=== PATIENT | female | born 1990 | race Hispanic/Latino ===

== ENCOUNTER 2017-03-07 15:30 | Emergency (ER) | payer BC, SELFPAY | END 2017-03-07 16:33 | disposition home or self-care (01) | LOC: SCSER 15:30 | DX: O20.0 Threatened abortion (principal); Z3A.01 Less than 8 weeks gestation of pregnancy | CPT/HCPCS: 36415; 84702 ==

== ENCOUNTER 2017-06-05 12:43 | Outpatient (CLI) | payer OTHER ==
--- NOTE | 2017-06-05 14:20 | ULT ---
OBSTETRIC SONOGRAM: HISTORY: Second trimester . Evaluate size and dates. FINDINGS: Multiple transabdominal sonographic views of the gravid uterus show a single intrauterine gestation, in a cephalic presentation. The grade 0 placenta is posterior. The spine and kidneys are inta ct, as visualized. The four chamber heart shows motion at 155 beats per minute. Amniotic fluid is w ithin normal limits. No gross intracranial abnormalities are apparent. Measurements are as follows: BIPARIETAL DIAMETER: 19 weeks and 6 days HEAD CIRCUMFERENCE: 20 weeks and 2 days ABDOMINAL CIRCUMFERENCE: 19 weeks and 6 days FEMUR LENGTH: 20 weeks and 5 days ESTIMATED DATE OF DELIVERY (BASED ON TODAY'S SONOGRAM): 10/22/2017 HADLOCK PERCENTILE: 65% IMPRESSION: Single viable intrauterine gestation with estimated gestational age, based on today's sonogram, 20 we eks and 1 day. POS: [facility]
== END 2017-06-05 12:44 | disposition home or self-care (01) ==
LOC: ULT 12:43
PROVIDERS: ATTEND Family Medicine
DX: Z34.92 Encounter for supervision of normal pregnancy, unspecified, second trimester (principal); Z3A.18 18 weeks gestation of pregnancy
CPT/HCPCS: 76805

== ENCOUNTER 2017-09-11 09:55 | Outpatient (CLI) | payer OTHER ==
--- NOTE | 2017-09-11 11:49 | ULT ---
ULTRASOUND RETROPERITONEUM COMPLETE: (RENAL) DATE: 09/11/17. HISTORY: A 27-year-old female in third trimester of experiencing right flank pain. FINDINGS: The right kidney measures approximately 12 x 6.5 x 6 cm. The left kidney measures approximately 11 x 5.5 x 5 cm. There is no hydronephrosis bilaterally. No moderate size or large solid or cystic renal lesion. The urinary bladder was not evaluated because it is obscured by the third-trimester gravid uterus. IMPRESSION: No hydronephrosis. CHARISSA Juarez POS: [facility]
--- NOTE | 2017-09-11 12:20 | ULT ---
OB ULTRASOUND: History: Evaluate for size and dates. Comparison: 06-05-17 Technique: Sagittal and transverse imaging of the gravid uterus was performed. FINDINGS: There is a single intrauterine gestation with cephalic presentation. Posterior placenta. Presence of absence of previa is difficult to assess on this examination due to shadowing from lie. Lower u terine segment cannot be assessed. There are heart tones at the rate of 124 beats/minute. Amniotic fluid index is 11.9 cm. biometry: BPD 8.38 cm 33 weeks 5 days HC 31.19 cm 34 weeks 6 days AC 29.24 cm 33 weeks 2 days FL 6.67 cm 34 weeks 2 days Average age by sonography is 34 weeks 0 days with an estimated delivery date of 10-23-17. weight is 2271 grams +/- 336 grams. IMPRESSION: 1. Single intrauterine gestation with heart tones. lie is cephalic. 2. Average age by ultrasound is 34 weeks 0 days, with estimated delivery date of 10-23-17. There is alba ropriate interval growth. Previously the estimated delivery date was 10-22-17. 3. Amniotic fluid index is 11.9 cm. POS: [facility]
== END 2017-09-11 09:56 | disposition home or self-care (01) ==
LOC: SCSULT 09:55
PROVIDERS: ATTEND Family Medicine
DX: Z34.93 Encounter for supervision of normal pregnancy, unspecified, third trimester (principal); Z3A.33 33 weeks gestation of pregnancy
CPT/HCPCS: 76770; 76805

== ENCOUNTER 2017-09-21 20:55 | Day surgery (SDC) | payer OTHER ==
[2017-09-21 21:32] VITALS: BP 108/64; TEMP 98.3
--- NOTE | 2017-09-22 07:46 | PRG ---
DATE OF SERVICE: 09/21/2017 PRESENTING COMPLAINT: Contractions, 35 weeks gestation. HISTORY OF PRESENT ILLNESS: Ms. 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 She denies ruptur e of membranes, vaginal bleeding. Reports an active fetus. OB AND MOLD WASHER HISTORY: Antepartum record not available on the unit, prior at term x1. Blood type O positive. PAST MEDICAL HISTORY: Denies. PAST SURGICAL HISTORY: Denies. ALLERGIES: Denies. MEDICATIONS: vitamins. SOCIAL HISTORY: Denies tobacco, alcohol, or IV drug use. FAMILY HISTORY: Noncontributory. REVIEW OF SYSTEMS: Noncontributory. PHYSICAL EXAMINATION: GENERAL: female, resting comfortably, texting on her cell phone. VITAL SIGNS: Temperature 97.8, respirations 18, pulse 79, blood pressure 108/64. HEENT: Within normal limits. LUNGS: Clear to auscultation bilaterally. HEART: Regular rate and rhythm. ABDOMEN: Soft and nontender with occasional indentable contractions. FHTs 140s. PELVIC: Vulva without lesions. Vagina without discharge. Cervix 1, long and high, cephalic by nurs e exam. EXTREMITIES: Without clubbing, cyanosis or edema. heart rate tracing was carried out for greater than 30 minutes revealed contractions approximat nannette q.8-10 minutes. Category 1 heart rate tracing was noted. IMPRESSION: Uterine irritability without evidence of labor at 35-36 weeks gestation. PLAN: Reassurance, p.o. hydration at home, keep scheduled followup with Dr. Campos.
== END 2017-09-21 22:35 | disposition home or self-care (01) ==
LOC: L&D/OP 20:55
PROVIDERS: ATTEND Family Medicine
DX: O47.03 False labor before 37 completed weeks of gestation, third trimester (principal); Z3A.35 35 weeks gestation of pregnancy; Z79.899 Other long term (current) drug therapy; Z91.09 Other allergy status, other than to drugs and biological substances
CPT/HCPCS: 99282

== ENCOUNTER 2017-09-25 21:38 | Day surgery (SDC) | payer OTHER ==
[2017-09-25 22:04] VITALS: BP 125/72; TEMP 98.7
--- NOTE | 2017-09-25 22:19 | PDOC.LDHP ---
Labor and Delivery H&P HPI: Patient of Dr Deandre Elias here at 35 weeks and 6 days with c/o contractions on/ off. Was seen earlier this week for same and was 1cm. No VB, no LOF, good FM. Review of Systems: complete ROS was performed and as per HPI. Current gestational age (weeks): 35 (6 days) Dating criteria: last menstrual period Grav: 3 Para: 1 (SAB1, no HX PTB) Current complications: none Abnormal US findings: No Current medications: pre-kendal vitamins Previous surgical history: none Allergies/Adverse Reactions: Allergies Allergy/AdvReac Type Severity Reaction Status Date / Time brooke Allergy Mild Rash Verified 09/25/17 22:04 Social history: none - Physical Exam Vital signs reviewed and normal: yes (125/72) General: NAD Heart: RRR Lungs: CTAB Abdomen: gravid Extremeties: no edema FHT: category 1 Electra contractions every: only irritability - Vaginal Exam cm dilated: 1 Effacement: 0% Station: -2 - Assessment Threatened labor at 35 weeks 6 days - Plan Plan: observation in L&D -: We will oberve in L&D. Monitors. I have ordered 1 liter LR for hydration. No evidence of PTL as cx unchanged from Thursday. Cat 1 NST. reassurance given.
[2017-09-25] MEDS ORDERED: Lactated Ringer's 1,000 ML IV SCH (22:30)
== END 2017-09-26 00:10 | disposition home or self-care (01) ==
LOC: L&D/OP 21:38
PROVIDERS: ATTEND Family Medicine
DX: O47.03 False labor before 37 completed weeks of gestation, third trimester (principal); Z79.899 Other long term (current) drug therapy; Z3A.35 35 weeks gestation of pregnancy

== ENCOUNTER 2017-10-13 14:43 | Inpatient (IN) | payer OTHER ==
[2017-10-13 15:21] VITALS: BMI 32.5
[2017-10-13] MEDS ORDERED: Lidocaine 1% (PF) 30 ML VIAL SC PRN (21:05)
[2017-10-13] MEDS ORDERED: Ondansetron HCl/PF 4 MG/2 ML Vial IVP PRN (21:05)
[2017-10-13] MEDS ORDERED: HYDROcodone/Acetaminophen 5/325 mg Tablet PO PRN (21:05)
[2017-10-13] MEDS ORDERED: Acetaminophen 500 MG TAB PO PRN (21:05)
[2017-10-13] MEDS ORDERED: Promethazine HCl 25 MG/ML VIAL IM PRN (21:05)
[2017-10-13] MEDS ORDERED: Ibuprofen 800 MG TAB PO PRN (21:05)
[2017-10-13] MEDS ORDERED: Butorphanol Tartrate 1 MG/ML VIAL SLOW IVP PRN (21:05)
[2017-10-13] MEDS: Lactated Ringer's 1,000 ML IV SCH (21:15)
[2017-10-13 21:36] LABS: Hemoglobin 10.9 g/dL (12.0-16.0); Mean Corpuscular Hemoglobin 26.2 pg (27.0-31.0); Mean Corpuscular Volume 77.1 fl (81.0-99.0); Mean Platelet Volume 9.4 fL (7.4-10.4); Platelet Count 210 thou/uL (130-400); RBC Distribution Width 14.4 % (11.5-14.5); Red Blood Cell (RBC) Count 4.17 mill/uL (4.20-5.40); White Blood Cell (WBC) Count 9.6 thou/uL (4.8-10.8)
[2017-10-13] MEDS ORDERED: NS w/ Oxytocin 10 units 500 ML IVPB SCH (22:15)
[2017-10-13 22:18] LABS: Syphilis Antibody Nonreactive (Nonreactive); Syphilis Antibody Index 0.04 S/CO (<1.00 Non-Reactive)
[2017-10-13 23:58] LABS: Hep B Surf Ag Non-Reactive S/CO (NonReactive)
[2017-10-14] MEDS: Lactated Ringer's 1,000 ML IV SCH ×3 (04:03→09:56)
[2017-10-14] MEDS ORDERED: DISCONTINUE ALL PREVIOUS NARCOTICS FS SCH (07:45)
[2017-10-14] MEDS ORDERED: Bupivacaine 0.5% 20 ML, fentaNYL Citrate/PF 400 MCG in Sodium Chloride 0.9% 72 ML EPIDURAL SCH (07:45)
[2017-10-14] MEDS ORDERED: Acetaminophen 325 MG TAB PO PRN (09:34)
[2017-10-14] MEDS ORDERED: ePHEDrine/0.9% NaCl/PF SYRINGE 50 mg/10 ml SLOW IVP PRN (09:34)
[2017-10-14] MEDS ORDERED: diphenhydrAMINE 50 MG/ML VIAL IVP PRN (09:34)
[2017-10-14] MEDS ORDERED: Promethazine HCl 25 MG/ML VIAL IM PRN (09:34)
[2017-10-14] MEDS ORDERED: Lactated Ringer's 500 ML IV PRN (09:34)
[2017-10-14] MEDS ORDERED: Eucerin (Mineral Oil/Petrolatum,White) 30 gm Jar TOP PRN (09:34)
[2017-10-14] MEDS ORDERED: Ondansetron HCl/PF 4 MG/2 ML Vial IVP PRN (09:34)
[2017-10-14] MEDS ORDERED: Naloxone HCl 0.4 mg/ml Vial IVP PRN ×2 (09:34)
[2017-10-14] MEDS ORDERED: Communication Order-Pharmacy FS SCH (09:45)
[2017-10-14] MEDS ORDERED: Fentanyl 4mcg/Marcaine 0.1% Cassette 100 ML EPIDURAL SCH (09:45)
[2017-10-14] MEDS: NS / Oxytocin 40 units/1000ml 1,000 ML IV PRN ×2 (13:45→15:47)
--- NOTE | 2017-10-14 13:58 | OP ---
DATE OF PROCEDURE: 10/14/2017 PREOPERATIVE DIAGNOSIS: Term . POSTOPERATIVE DIAGNOSIS: Term . PROCEDURE PERFORMED: Spontaneous vaginal repair of first degree midline episiotomy. SURGEON: Deandre Campos M.D. ANESTHESIA: Epidural. PROCEDURE IN DETAIL: This 27-year-old female taken to delivery room, complete and pushing. The patient prepped and draped sterilely. Delivered a baby boy with Apgars 7 at 1 min point hope ira, 9 at 5 minutes. Cord around the neck x2 was noted and easily reduced. Estimated blood loss was 350 mL. The placenta spontaneously intact. Repaired a first degree midline episiotomy with 3-0 chr omic and a 2 cm labial tear with 1 interrupted stitch of 3-0 chromic. Mother and baby did very well.
[2017-10-14] MEDS ORDERED: NS / Oxytocin 40 units/1000ml 1,000 ML IV SCH (17:10)
[2017-10-14] MEDS ORDERED: Methylergonovine 0.2 MG/ML VIAL IM PRN (17:10)
[2017-10-14] MEDS ORDERED: Lanolin Ointment 7 GM TUBE TOP PRN (17:10)
[2017-10-14] MEDS ORDERED: Bisacodyl 10 MG SUPP PR PRN (17:10)
[2017-10-14] MEDS ORDERED: Adacel (T-DAP) 0.5 ML VIAL IM ONE (17:10)
[2017-10-14] MEDS ORDERED: Milk Of Magnesia 30 ML UDCUP PO PRN (17:10)
[2017-10-14] MEDS: Ferrous Sulfate 325 MG TAB PO SCH (17:46)
[2017-10-14] MEDS: Acetaminophen/Codeine 30-300mg Tablet PO PRN (21:45)
[2017-10-14] MEDS: Docusate Calcium (SURFAK) 240 MG CAP PO SCH (21:46)
[2017-10-15] MEDS: Acetaminophen/Codeine 30-300mg Tablet PO PRN (04:48)
[2017-10-15 05:32] LABS: Mean Corpuscular HGB CONC 33.4 g/dL (32.0-36.0); Mean Corpuscular Hemoglobin 25.8 pg (27.0-31.0); Mean Corpuscular Volume 77.4 fl (81.0-99.0); Mean Platelet Volume 8.6 fL (7.4-10.4); Platelet Count 157 thou/uL (130-400); RBC Distribution Width 14.3 % (11.5-14.5); Red Blood Cell (RBC) Count 3.49 mill/uL (4.20-5.40); White Blood Cell (WBC) Count 8.5 thou/uL (4.8-10.8)
[2017-10-15] MEDS: Docusate Calcium (SURFAK) 240 MG CAP PO SCH ×2 (08:51→21:34)
[2017-10-15] MEDS: Ferrous Sulfate 325 MG TAB PO SCH ×2 (08:51→16:40)
[2017-10-15] MEDS: Prenatal Vitamin 1 TAB PO SCH (08:52)
[2017-10-15] MEDS: Ibuprofen 800 MG TAB PO SCH ×2 (15:20→21:34)
[2017-10-16] MEDS: Ibuprofen 800 MG TAB PO SCH (06:29)
[2017-10-16 08:24] VITALS: BP 106/56; TEMP 97.8
[2017-10-16] MEDS: Ferrous Sulfate 325 MG TAB PO SCH (09:27)
[2017-10-16] MEDS: Docusate Calcium (SURFAK) 240 MG CAP PO SCH (09:28)
[2017-10-16] MEDS: Prenatal Vitamin 1 TAB PO SCH (09:28)
--- NOTE | 2017-10-16 12:08 | PDOC.PP ---
Post Progress Note Post Day #: 2 Subjective: Feeling well, no concerns, lochia normal. PO intake tolerated: yes Flatus: yes Ambulation: yes Vital Signs (12 hours) Temp Pulse Resp BP 10/16/17 08:23 97.8 F 72 20 106/56 L 10/16/17 08:00 97.8 F 72 20 Weight Weight 202 lb - Physical Examination General: NAD Cardiovascular: no m/r/g, RRR Respiratory: clear to auscultation bilaterally, non-labored breathing Abdominal: + bowel sounds, lochia, no distention, appropriately TTP Result Diagrams: 10/15/17 05:24 Additional Labs: Post Labs Blood Type O POSITIVE 10/13/17 21:15 Hep Bs Antigen Non-Reactive S/CO (NonReactive) 10/13/17 21:15 - Assessment/Plan PPD #2 Routine care D/C home this PM.
== END 2017-10-16 13:35 | disposition home or self-care (01) | DRG 775 ==
LOC: L&D/OP 14:43 → L&D 20:29 → 3SW 10-14 17:19
PROVIDERS: ADMIT Family Medicine; ATTEND Family Medicine
PROC: 10E0XZZ Delivery of Products of Conception, External Approach (ICD-10-PCS; principal; 2017-10-14)
PROC: 0HQ9XZZ Repair Perineum Skin, External Approach (ICD-10-PCS; 2017-10-14)
DX: O69.81X0 Labor and delivery complicated by cord around neck, without compression, not applicable or unspecified (principal); O70.0 First degree perineal laceration during delivery; Z37.0 Single live birth
CPT/HCPCS: 36415; 51702; 85027; 86780; 86850; 86900; 86901; 87340; 90715; 99285; J2001; J3010; J3490; J7050

== ENCOUNTER 2017-11-01 14:59 | Emergency (ER) | payer OTHER ==
[2017-11-01 15:44] LABS: #Lymphocytes 1.2 thou/uL (1.20-3.40); #Monocytes 0.3 thou/uL (0.11-0.59); #Neutrophils 10.3 thou/uL (1.40-6.50); %Basophils 0.2 % (0.0-1.0); %Eosinophils 0.1 % (0.0-10.0); %Lymphocytes 9.8 % (21.0-51.0); %Monocytes 2.9 % (0.0-10.0); %Neutrophils 87.1 % (42.0-75.0); Hemoglobin 12.2 g/dL (12.0-16.0); Mean Corpuscular Hemoglobin 24.7 pg (27.0-31.0); Mean Corpuscular Volume 77.2 fl (81.0-99.0); Mean Platelet Volume 8.2 fL (7.4-10.4); Platelet Count 297 thou/uL (130-400); RBC Distribution Width 14.2 % (11.5-14.5); Red Blood Cell (RBC) Count 4.92 mill/uL (4.20-5.40); White Blood Cell (WBC) Count 11.8 thou/uL (4.8-10.8)
[2017-11-01 16:00] LABS: ALT (SGPT) 18 U/L (8-55); AST (SGOT) 14 U/L (5-34); Albumin 4.1 g/dL (3.5-5.0); Alkaline Phosphatase 151 U/L (40-150); Anion Gap 14 mmol/L (10-20); BUN (Urea Nitrogen) 8 mg/dL (7.0-18.7); Bilirubin, Total 0.6 mg/dL (0.2-1.2); Calc. Creatinine Clearance 0 mL/min (70-130); Calcium 9.2 mg/dL (7.8-10.44); Carbon Dioxide 24 mmol/L (22-29); Chloride 105 mmol/L (98-107); Estimated GFR-MDRD 84; Globulin 3.3 g/dL (2.4-3.5); Glucose 92 mg/dL (70-105); Potassium 3.7 mmol/L (3.5-5.1); Protein, Total 7.4 g/dL (6.0-8.3); Sodium 139 mmol/L (136-145)
[2017-11-01] MEDS ORDERED: Acetaminophen 500 MG TAB ONE (16:41)
[2017-11-01 17:21] LABS: Bilirubin Negative (Negative); Blood, Urine Negative (Negative); Clarity CLEAR (Clear); Glucose, Urine (Dipstick) Negative (Negative); Leukocyte Small (Negative); Nitrite Negative (Negative); Protein, Urine (Dipstick) 30 mg/dL (Neg-Trace); Specific Gravity, Urine 1.024 (1.002-1.036); pH, Urine 7.5 (5.0-9.0)
[2017-11-01 17:22] LABS: Bacteria/HPF None Seen HPF (None Seen); Hyaline Casts/LPF 4-6 HYALINE CAST LPF (0-3 Hyaline); Pathc Cast-AUWi Flag 1.16 (0-2.49)
[2017-11-01 17:30] LABS: RBC/HPF 0-3 HPF (0-3)
[2017-11-03 03:16] LABS: Chlamydia by PCR Not Detected (NotDetected); GC by PCR Not Detected (NotDetected)
== END 2017-11-01 20:05 | disposition home or self-care (01) ==
LOC: ERS 14:59
DX: E86.0 Dehydration (principal); B34.9 Viral infection, unspecified
CPT/HCPCS: 36415; 80053; 81003; 81015; 83605; 84443; 85025; 87040; 87086; 87480; 87491; 87510; 87591; 87660; 96360; 96361